=== PATIENT | male | born 1945 | race Caucasian/White ===

== ENCOUNTER 2018-05-15 14:52 | Inpatient (IN) | payer MEDICARE, OTHER ==
[~2018-05-15] VITALS: Ht 182.9 cm; Wt 85.9 kg
[2018-07-06] VITALS (11 sets, daily range): BP systolic 95–119; BP diastolic 63–69; PULSE 71–79; TEMP 97.8–98.2
[2018-07-06] MEDS ORDERED: ASPIRIN 81M81 MG/TA2 PO (03:54)
[2018-07-06] MEDS ORDERED: ZYLOPRIM 300MG300 MG PO (03:54)
[2018-07-06] MEDS ORDERED: CYMBALTA 60MG60 MG PO (03:54)
[2018-07-06] MEDS ORDERED: ANORO IH (03:54)
[2018-07-06] MEDS ORDERED: FOLIC ACID 11 MG/TA1 PO (03:55)
[2018-07-06] MEDS ORDERED: EFFIENT10 MG PO (03:55)
[2018-07-06] MEDS ORDERED: FERROUS SU325 MG/TAB PO (03:55)
[2018-07-06] MEDS ORDERED: SYNTHROID0.125 MG/T PO (03:56)
[2018-07-06] MEDS ORDERED: PROTONIX 40MG T40 MG PO (03:56)
[2018-07-06] MEDS ORDERED: SINGULAIR 110 MG/TAB PO (03:57)
[2018-07-06] MEDS ORDERED: REXULTI3 MG PO (03:57)
[2018-07-06] MEDS ORDERED: ZOCOR 40MG40 MG PO (03:57)
[2018-07-06] MEDS ORDERED: VITAMIN C500 MG PO (03:58)
[2018-07-06] MEDS ORDERED: DESYREL 100MG100 MG PO (03:58)
[2018-07-06] MEDS ORDERED: ZANTAC 150MG T150 MG PO (03:59)
[2018-07-06] MEDS ORDERED: WELLBUTRIN XL300 M1 PO (03:59)
[2018-07-06] MEDS ORDERED: VITAMIND3 5000 PO (03:59)
[2018-07-07 00:22] VITALS: BP 90/60; PULSE 63; TEMP 98.2
[2018-07-07 04:18] VITALS: BP 139/79; PULSE 72; TEMP 98
[2018-07-07] MEDS ORDERED: ROXICODONE 55 MG/TAB PO (07:12)
[2018-07-07] MEDS ORDERED: NORCO 325 MG-7.1 TAB PO (07:12)
[2018-07-07 08:00] VITALS: BP 119/90; PULSE 68; TEMP 97.6
[2018-07-07 12:00] VITALS: BP 114/71; PULSE 72; TEMP 98.2
== END 2018-07-07 14:50 | disposition home or self-care (01) | DRG 483 ==
LOC: JCC 07-06 05:26
PROVIDERS: Orthopaedic Surgery
PROC: 0RRK00Z Replacement of Left Shoulder Joint with Reverse Ball and Socket Synthetic Substitute, Open Approach (ICD-10-PCS; principal; 2018-07-06 07:30)
DX: S42.222P 2-part displaced fracture of surgical neck of left humerus, subsequent encounter for fracture with malunion (principal); I25.10 Atherosclerotic heart disease of native coronary artery without angina pectoris; W18.30XD Fall on same level, unspecified, subsequent encounter; Z95.5 Presence of coronary angioplasty implant and graft; E78.5 Hyperlipidemia, unspecified; J44.9 Chronic obstructive pulmonary disease, unspecified; I10 Essential (primary) hypertension; Z85.030 Personal history of malignant carcinoid tumor of large intestine; G89.21 Chronic pain due to trauma
CPT/HCPCS: A4314; A4315; A9284; C1713; C1776; J0171; J0690; J1100; J2250; J2370; J2405; J2704; J2795; J3010; J7050; J7120

== ENCOUNTER → 2018-06-29 | Outpatient (CLI) | payer MEDICARE, OTHER ==
[2018-06-29 12:23] LABS: HIV 1/2 Antibodies Non-Reactive; HIV-1p24 Antigen Non-Reactive
== END ==
LOC: COL.LAB 11:18
PROVIDERS: Orthopaedic Surgery
DX: Z01.812 Encounter for preprocedural laboratory examination (principal); M19.012 Primary osteoarthritis, left shoulder

== ENCOUNTER 2021-07-07 11:11 | Outpatient (RCR) | payer MEDICARE, BC ==
[~2021-07-07 11:11] MED LIST: ANORO IH; ASPIRIN 81M81 MG/TA2 PO; ASPIRIN E.C. 8181 MG PO; CYMBALTA 30MG30 MG PO; CYMBALTA 60MG60 MG PO; DESYREL 100MG100 MG PO; EFFIENT10 MG PO; FERROUS SU325 MG/TAB PO; FOLIC ACID 11 MG/TA1 PO; MELATONIN5 M1 PO; NORCO 325 MG-7.1 TAB PO; PROTONIX 40MG T40 MG PO; REXULTI3 MG PO; ROXICODONE 55 MG/TAB PO; SINGULAIR 110 MG/TAB PO; SYNTHROID0.125 MG/T PO; VALIUM 2MG T2 MG/TAB PO; VITAMIN C500 MG PO; VITAMIND3 5000 PO; WELLBUTRIN XL300 M1 PO; ZANTAC 150MG T150 MG PO; ZOCOR 40MG40 MG PO; ZYLOPRIM 300MG300 MG PO
== END 2021-09-18 | disposition home or self-care (01) ==
LOC: WSST
DX: F03.90 Unspecified dementia, unspecified severity, without behavioral disturbance, psychotic disturbance, mood disturbance, and anxiety (principal); G20 Parkinson's disease; F32.9 Major depressive disorder, single episode, unspecified

== ENCOUNTER → 2021-07-21 | Outpatient (CLI) | payer MEDICARE, BC | LOC: COL.RAD 15:07 | DX: F03.90 Unspecified dementia, unspecified severity, without behavioral disturbance, psychotic disturbance, mood disturbance, and anxiety (principal); G20 Parkinson's disease; F32.9 Major depressive disorder, single episode, unspecified ==